=== PATIENT | female | born 1980 | race African-American/Black ===

== ENCOUNTER 2020-05-23 20:10 | Emergency (ER) | payer OTHER | END 2020-05-23 20:17 | disposition home or self-care (01) | LOC: JVIRT 20:10 | DX: Z11.59 Encounter for screening for other viral diseases (principal) | CPT/HCPCS: C9803; Q3014-GT; U0003 ==

== ENCOUNTER 2021-06-19 00:42 | Emergency (ER) | payer BC, OTHER | END 2021-06-19 00:54 | disposition home or self-care (01) | LOC: JVIRT 00:42 | DX: U07.1 COVID-19 (principal) | CPT/HCPCS: C9803-CS; Q3014-GT; U0003; U0005 ==

== ENCOUNTER → 2022-01-21 | Emergency (ER) | payer BC | END | disposition home or self-care (01) | LOC: JCVC 16:14 → JVIRT 16:14 | DX: Z20.822 Contact with and (suspected) exposure to COVID-19 (principal) | CPT/HCPCS: 0241U-QW; G2251-GT; Q3014-GT ==

== ENCOUNTER → 2022-04-15 | Emergency (ER) | payer BC | END | disposition home or self-care (01) | LOC: JVIRT 17:47 | DX: B34.9 Viral infection, unspecified (principal) | CPT/HCPCS: 0241U-QW; 99283-25 ==